=== PATIENT | female | born 1950 | race Caucasian/White ===

== ENCOUNTER 2020-04-26 10:47 | Emergency (ER) | payer MEDICARE, OTHER ==
[~2020-04-26] VITALS: Ht 157.5 cm; Wt 45.8 kg
[2020-04-26 16:59] LABS: Basophils # (auto) 0.1 10 ^3/uL (0-0.2); Basophils % (auto) 0.7 % (0.0-2.0); Eosinophils # (auto) 0 10 ^3/uL (0-0.8); Eosinophils % (auto) 0.1 % (0.0-7.0); Hemoglobin 12.7 g/dL (12.2-16.2); Lymphocytes # (auto) 1.4 10 ^3/uL (0.4-5.4); Lymphocytes % (auto) 17.4 % (10.0-50.0); Mean Corpuscular Hemoglobin 29.5 pg (28.0-32.0); Mean Corpuscular Hgb Conc. 34.3 g/dL (32.0-36.0); Mean Corpuscular Volume 86.2 fL (80.0-100.0); Monocytes # (auto) 0.4 10 ^3/uL (0-1.3); Neutrophils % (auto) 76.8 % (37.0-80.0); Nucleated Red Blood Cells % 0.1 %; Platelet Count (auto) 233 10^3/uL (140-450); Red Blood Cells 4.29 10^6/uL (4.0-5.20); Red Cell Distribution Width 13.9 % (11.8-14.3); White Blood Cell 7.9 10^3/uL (4.4-10.8)
[2020-04-26 17:13] LABS: Anion Gap 4 (5-15); Blood Urea Nitrogen 16 mg/dL (7-18); Calcium 9.8 mg/dL (8.5-10.1); Carbon Dioxide 28 mmol/L (21-32); Chloride 104 mmol/L (98-107); Glucose 92 mg/dL (74-106); Sodium 136 mmol/L (136-145)
[2020-04-26 17:14] LABS: Amylase 81 U/L (25-115); Lipase 158 U/L (73-393)
[2020-04-26 17:20] LABS: Alanine Aminotransferase 25 U/L (13-56); Alkaline Phosphatase 77 U/L (45-117); Aspartate Aminotransferase 8 U/L (15-37); BUN/Creatinine Ratio 23.2; Bilirubin, Total 1.3 mg/dL (0.2-1.0); GFR African American 109 mL/min; GFR Non-African American 90 mL/min; Total Protein 8.1 g/dL (6.4-8.2)
[2020-04-26 22:41] VITALS: BP 148/77
== END 2020-04-27 04:51 | disposition home or self-care (01) ==
LOC: ER 10:47
DX: F41.9 Anxiety disorder, unspecified (principal); K29.00 Acute gastritis without bleeding
CPT/HCPCS: 36415; 74176; 80053; 82150; 83690; 84484; 85025

== ENCOUNTER 2021-07-24 14:12 | Emergency (ER) | payer OTHER ==
[~2021-07-24] VITALS: Ht 157.5 cm; Wt 40.8 kg
[2021-07-24 15:38] LABS: Basophils # (auto) 0 10 ^3/uL (0-0.2); Basophils % (auto) 0.5 % (0.0-2.0); Eosinophils # (auto) 0 10 ^3/uL (0-0.8); Hematocrit 39.9 % (36.0-46.0); Hemoglobin 13.6 g/dL (12.2-16.2); Lymphocytes % (auto) 13.3 % (10.0-50.0); Mean Corpuscular Hemoglobin 28.7 pg (28.0-32.0); Mean Corpuscular Hgb Conc. 34.2 g/dL (32.0-36.0); Monocytes # (auto) 0.6 10 ^3/uL (0-1.3); Monocytes % (auto) 7.4 % (0.0-12.0); Neutrophils # (auto) 6.1 10 ^3/uL (1.6-8.6); Neutrophils % (auto) 78.8 % (37.0-80.0); Red Blood Cells 4.74 10^6/uL (4.0-5.20); White Blood Cell 7.7 10^3/uL (4.4-10.8)
[2021-07-24 15:55] LABS: Calcium 9.6 mg/dL (8.5-10.1); Potassium 3.4 mmol/L (3.5-5.1)
[2021-07-24 16:00] LABS: Total Protein 7.5 g/dL (6.4-8.2)
[2021-07-24] MEDS ORDERED: CIPROFLOXACIN HCL 500 MG TAB PO ONE (16:45)
[2021-07-24] MEDS ORDERED: metroNIDAZOLE 500 MG TAB PO ONE (16:45)
[2021-07-24 20:31] LABS: Urine Bacteria FEW /hpf (None Seen); Urine Blood 1+ /uL (Negative); Urine Mucus FEW (None Seen); Urine Specific Gravity 1.007 (1.001-1.035); Urine WBC 2 /hpf (0 - 5)
[2021-07-24 22:01] VITALS: BP 141/52
== END 2021-07-24 22:30 | disposition home or self-care (01) ==
LOC: ER 14:12
DX: K29.00 Acute gastritis without bleeding (principal)
CPT/HCPCS: 36415; 70450; 74176; 80053; 81001; 83690; 84484; 85025